=== PATIENT | male | born 1960 | race Caucasian/White ===

== ENCOUNTER → 2018-10-03 | Outpatient (REF) | payer OTHER | LOC: M SMT 16:55 | PROVIDERS: ATTEND Nurse Practitioner Family | DX: R97.20 Elevated prostate specific antigen [PSA] (principal) ==

== ENCOUNTER → 2019-04-07 | Outpatient (REF) | payer OTHER | LOC: M SMT 17:11 | PROVIDERS: ATTEND Nurse Practitioner Family | DX: R97.20 Elevated prostate specific antigen [PSA] (principal) ==

== ENCOUNTER → 2019-04-22 | Outpatient (CLI) | payer OTHER ==
--- NOTE | 2019-04-23 08:32 | REP ---
Prostate sonography: History: Elevated PSA. Sonographic findings: Trans rectal prostate sonography demonstrates unremarkable seminal vesicles. Prostate gland is heterogeneously enlarged with calcifications and cystic changes noted. Glandular dimensions are measured at 3.7 x 2.5 x 4.1 cm with a calculated glandular volume of 19.4 mL. There is a 0.9 cm hypoechoic area in the left mid prostate. There is also a 0.7 cm hypoechoic area in the right mid prostate. Transrectal sonographic guidance is provided to Dr. Graham who performed transrectal ultrasound guided needle biopsy procedure . Electronically Signed by Emanuel Ortiz MD 04/23/2019 09:11 A
== END ==
LOC: M SMT PRO 10:57
PROVIDERS: ATTEND Urology
DX: C61 Malignant neoplasm of prostate (principal)
CPT/HCPCS: 76872; 76942; G0416

== ENCOUNTER → 2019-05-14 | Outpatient (REF) | payer OTHER | LOC: M SMT 17:33 | PROVIDERS: ATTEND Urology | DX: N41.9 Inflammatory disease of prostate, unspecified (principal) ==